=== PATIENT | female | born 1960 | race Hispanic/Latino ===

== ENCOUNTER 2017-10-07 11:45 | Outpatient (CLI) | payer BC | END 2017-10-07 11:46 | disposition home or self-care (01) | LOC: BICMAMMO 11:45 | PROVIDERS: ATTEND Family Medicine | DX: Z12.31 Encounter for screening mammogram for malignant neoplasm of breast (principal) | CPT/HCPCS: 77063; 77067 ==

== ENCOUNTER 2019-01-02 11:48 | Outpatient (CLI) | payer BC ==
--- NOTE | 2019-01-02 12:29 | MMO ---
Bilateral MAMMO Bilat Screen [facility]. CLINICAL HISTORY: Patient is 58 years old and is seen for screening. The patient has no family history of breast cancer. The patient has no personal history of cancer. VIEWS: The views performed were: bilateral craniocaudal with tomosynthesis and bilateral mediolateral oblique with tomosynthesis. FILMS COMPARED: The present examination has been compared to prior imaging studies performed at [facility] on 04/01/2013, 05/02/2015, 08/02/2016 and 10/07/2017. MAMMOGRAM FINDINGS: There are scattered fibroglandular densities. There are no suspicious masses, suspicious calcifications, or new areas of architectural distortion. IMPRESSION: THERE IS NO MAMMOGRAPHIC EVIDENCE OF MALIGNANCY. A ROUTINE FOLLOW-UP MAMMOGRAM IN 1 YEAR IS RECOMMENDED. THE RESULTS OF THIS EXAM WERE SENT TO THE PATIENT. ACR BI-RADS Category 1 - Negative MAMMOGRAPHY NOTE: 1. A negative mammogram report should not delay a biopsy if a dominant of clinically suspicious mass is present. 2. Approximately 10% to 15% of breast cancers are not detected by mammography. 3. Adenosis and dense breasts may obscure an underlying neoplasm. Reported by: PINKY BRICEÑO MD Electonically Signed: [id number]
== END 2019-01-02 11:49 | disposition home or self-care (01) ==
LOC: BICMAMMO 11:48
PROVIDERS: ATTEND Family Medicine
DX: Z12.31 Encounter for screening mammogram for malignant neoplasm of breast (principal)
CPT/HCPCS: 77063; 77067

== ENCOUNTER 2019-07-06 13:52 | Outpatient (CLI) | payer BC ==
--- NOTE | 2019-07-06 15:31 | BD ---
BONE DENSITOMETRY: Date: 07/06/2019 HISTORY: Postmenopausal osteoporosis screening. FINDINGS: Lumbar Spine: BMD (g/cm2) L1 0.784 T-Score: -1.9 L2 0.773 T-Score: -2.3 L3 0.826 T-Score: -2.3 L4 0.929 T-Score: -1.2 Total 0.832 T-Score: -2.0 Left Femoral Neck: 0.730 T-Score: -1.1 Total Femur: 0.900 T-Score: -0.3 IMPRESSION: Bone mineral density of the lumbar spine and femoral neck both indicate osteopenia. 10 YEAR FRACTURE RISK: Major osteoporotic fracture: 8.6% Hip fracture: 0.5% POS: [facility]
== END 2019-07-06 13:53 | disposition home or self-care (01) ==
LOC: BICMAMMO 13:52
PROVIDERS: ATTEND Internal Medicine Rheumatology
DX: M81.0 Age-related osteoporosis without current pathological fracture (principal); M85.89 Other specified disorders of bone density and structure, multiple sites
CPT/HCPCS: 77080

== ENCOUNTER 2020-03-31 10:55 | Outpatient (CLI) | payer BC ==
--- NOTE | 2020-03-31 11:30 | MMO ---
Bilateral MAMMO Bilat Screen [facility]. CLINICAL HISTORY: Patient is 59 years old and is seen for screening. The patient has no family history of breast cancer. The patient has no personal history of cancer. VIEWS: The views performed were: bilateral craniocaudal with tomosynthesis and bilateral mediolateral oblique with tomosynthesis. FILMS COMPARED: The present examination has been compared to prior imaging studies performed at [facility] on 05/02/2015, 08/02/2016, 10/07/2017 and 01/02/2019. This study has been interpreted with the assistance of computer-aided detection. MAMMOGRAM FINDINGS: There are scattered fibroglandular densities. There are no suspicious masses, suspicious calcifications, or new areas of architectural distortion. IMPRESSION: THERE IS NO MAMMOGRAPHIC EVIDENCE OF MALIGNANCY. A ROUTINE FOLLOW-UP MAMMOGRAM IN 1 YEAR IS RECOMMENDED. THE RESULTS OF THIS EXAM WERE SENT TO THE PATIENT. ACR BI-RADS Category 1 - Negative MAMMOGRAPHY NOTE: 1. A negative mammogram report should not delay a biopsy if a dominant of clinically suspicious mass is present. 2. Approximately 10% to 15% of breast cancers are not detected by mammography. 3. Adenosis and dense breasts may obscure an underlying neoplasm. Reported by: JOSHUA ROSEN MD Electonically Signed: [id number]
== END 2020-03-31 10:56 | disposition home or self-care (01) ==
LOC: BICMAMMO 10:55
PROVIDERS: ATTEND Family Medicine
DX: Z12.31 Encounter for screening mammogram for malignant neoplasm of breast (principal)
CPT/HCPCS: 77063; 77067

== ENCOUNTER 2021-06-29 13:29 | Outpatient (CLI) | payer BC | END 2021-06-29 13:30 | disposition home or self-care (01) | LOC: BICMAMMO 13:29 | PROVIDERS: ATTEND Family Medicine | DX: Z12.31 Encounter for screening mammogram for malignant neoplasm of breast (principal); M81.0 Age-related osteoporosis without current pathological fracture; M85.851 Other specified disorders of bone density and structure, right thigh; M85.852 Other specified disorders of bone density and structure, left thigh; N64.89 Other specified disorders of breast | CPT/HCPCS: 77063; 77067; 77080 ==

== ENCOUNTER 2021-07-04 12:25 | Outpatient (CLI) | payer BC | END 2021-07-04 12:26 | disposition home or self-care (01) | LOC: BICMAMMO 12:25 | PROVIDERS: ATTEND Family Medicine | DX: R92.2 Inconclusive mammogram (principal) | CPT/HCPCS: G0279 ==

== ENCOUNTER 2022-09-18 10:47 | Outpatient (CLI) | payer BC | END 2022-09-18 10:48 | disposition home or self-care (01) | LOC: BICMAMMO 10:47 | PROVIDERS: ATTEND Internal Medicine Rheumatology | DX: M81.0 Age-related osteoporosis without current pathological fracture (principal); M85.80 Other specified disorders of bone density and structure, unspecified site | CPT/HCPCS: 77080 ==

== ENCOUNTER 2023-11-15 11:26 | Outpatient (CLI) | payer BC | END 2023-11-15 11:27 | disposition home or self-care (01) | LOC: BICMAMMO 11:26 | PROVIDERS: ATTEND Family Medicine | DX: Z12.31 Encounter for screening mammogram for malignant neoplasm of breast (principal) | CPT/HCPCS: 77063; 77067 ==

== ENCOUNTER 2023-12-20 14:34 | Inpatient (IN) | payer BC ==
[2023-12-20] MEDS ORDERED: Dexamethasone 10 MG/ML VIAL ONE (15:53)
[2023-12-20] MEDS ORDERED: Meclizine HCl 25 MG TAB ONE (15:54)
[2023-12-20] MEDS ORDERED: LORazepam 2 MG/ML SYR.(CARPUJECT) ONE (15:54)
[2023-12-20 16:41] LABS: #Basophils 0.03 10x3/uL (0.0-0.2); #Eosinphils Less than 0.03 10x3/uL (0.0-0.7); %Basophils 0.4 % (0.0-1.0); %Lymphocytes 7.3 % (21.0-51.0); %Monocytes 3.2 % (0.0-10.0); Hematocrit 36.9 % (36.0-47.0); Hemoglobin 12.8 g/dL (12.0-16.0); Mean Corpuscular HGB CONC 34.7 g/dL (32.0-36.0); Mean Corpuscular Volume 92.3 fL (78.0-98.0); Mean Platelet Volume 10.1 fL (7.4-10.4); Platelet Count 273 10x3/uL (130-400); RBC Distribution Width 12.6 % (11.5-14.5)
[2023-12-20 16:52] LABS: ALT (SGPT) 16 U/L (8-55); AST (SGOT) 19 U/L (5-34); Albumin 3.6 g/dL (3.4-4.8); Alkaline Phosphatase 50 U/L (40-110); Anion Gap 10 mmol/L (10-20); BUN (Urea Nitrogen) 11 mg/dL (9.8-20.1); Bilirubin, Total 0.1 mg/dL (0.2-1.2); Calc. Creatinine Clearance 0 mL/min (70-130); Calcium 8.6 mg/dL (7.8-10.44); Carbon Dioxide 23 mmol/L (23-31); Chloride 112 mmol/L (98-107); Estimated GFR 102; Globulin 2.3 g/dL (2.4-3.5); Glucose 134 mg/dL (80-115); Potassium 3.5 mmol/L (3.5-5.1); Protein, Total 5.9 g/dL (5.8-8.1); Sodium 141 mmol/L (136-145)
[2023-12-20 16:58] LABS: Troponin I 0.038 ng/mL (< 0.028)
[2023-12-20 19:24] LABS: Troponin I 0.123 ng/mL (< 0.028)
[2023-12-20] MEDS ORDERED: Ondansetron PF 4 MG/2 ML Vial ONE (20:28)
[2023-12-20] MEDS ORDERED: Ondansetron ODT 4 MG TAB SL PRN (21:15)
[2023-12-20] MEDS ORDERED: Ondansetron PF 4 MG/2 ML Vial IVP PRN (21:15)
[2023-12-20] MEDS: Sodium Chloride 0.9% 1,000 ML IV SCH (21:51)
[2023-12-20 22:14] VITALS: BMI 23.6
[2023-12-20 23:18] LABS: Troponin I 0.137 ng/mL (< 0.028)
[2023-12-21] MEDS ORDERED: hydrALAZINE 20 MG/ML VIAL SLOW IVP PRN (00:33)
[2023-12-21] MEDS ORDERED: Acetaminophen 650 MG Suppository PR PRN (00:33)
[2023-12-21] MEDS ORDERED: Atropine Sulfate 1 mg/1 ml Vial IVP PRN (01:37)
[2023-12-21] MEDS: Aspirin Chewable 81 MG TAB PO SCH (02:11)
[2023-12-21 02:36] LABS: #Basophils Less than 0.03 10x3/uL (0.0-0.2); #Eosinphils Less than 0.03 10x3/uL (0.0-0.7); %Basophils 0.2 % (0.0-1.0); %Lymphocytes 17.6 % (21.0-51.0); %Monocytes 3.9 % (0.0-10.0); %Neutrophils 77.9 % (42.0-75.0); Hematocrit 34.7 % (36.0-47.0); Hemoglobin 11.8 g/dL (12.0-16.0); Mean Corpuscular Hemoglobin 32.2 pg (27.0-31.0); Mean Corpuscular Volume 94.6 fL (78.0-98.0); Mean Platelet Volume 9.7 fL (7.4-10.4); Platelet Count 249 10x3/uL (130-400); RBC Distribution Width 12.6 % (11.5-14.5); Red Blood Cell (RBC) Count 3.67 mill/uL (4.20-5.40)
[2023-12-21 02:56] LABS: Troponin I 0.118 ng/mL (< 0.028)
[2023-12-21 03:35] LABS: Anion Gap 10 mmol/L (10-20); BUN (Urea Nitrogen) 9 mg/dL (9.8-20.1); Calc. Creatinine Clearance 100 mL/min (70-130); Calcium 8.3 mg/dL (7.8-10.44); Carbon Dioxide 20 mmol/L (23-31); Cardiac Risk 2.4 (Less than 4.5); Chloride 117 mmol/L (98-107); Cholesterol 179 mg/dl (< 200 Desired); Estimated GFR 104; Glucose 131 mg/dL (80-115); HDL Cholesterol 76 mg/dL (>60 Neg Risk); LDL Cholesterol, Calculated 96 mg/dL; Potassium 3.6 mmol/L (3.5-5.1); Sodium 143 mmol/L (136-145); Triglycerides 36 mg/dL (Less than 150)
[2023-12-21] MEDS: Acetaminophen 325 MG TAB PO PRN (03:55)
[2023-12-21] MEDS: Aspirin 81 mg Enteric Coated Tablet PO SCH (10:02)
[2023-12-22 04:31] LABS: #Basophils 0.04 10x3/uL (0.0-0.2); %Basophils 0.7 % (0.0-1.0); %Eosinophils 2.6 % (0.0-10.0); %Lymphocytes 34.6 % (21.0-51.0); %Monocytes 9.2 % (0.0-10.0); %Neutrophils 52.7 % (42.0-75.0); Hematocrit 39.7 % (36.0-47.0); Mean Corpuscular HGB CONC 32.7 g/dL (32.0-36.0); Mean Corpuscular Hemoglobin 31.9 pg (27.0-31.0); Mean Corpuscular Volume 97.3 fL (78.0-98.0); Mean Platelet Volume 10.1 fL (7.4-10.4); Platelet Count 275 10x3/uL (130-400); RBC Distribution Width 12.7 % (11.5-14.5); Red Blood Cell (RBC) Count 4.08 mill/uL (4.20-5.40)
[2023-12-22 04:55] LABS: Hemoglobin A1c 5.6 % (4.0-6.0)
[2023-12-22 05:24] LABS: ALT (SGPT) 17 U/L (8-55); AST (SGOT) 20 U/L (5-34); Albumin 3.6 g/dL (3.4-4.8); Alkaline Phosphatase 43 U/L (40-110); Anion Gap 11 mmol/L (10-20); BUN (Urea Nitrogen) 10 mg/dL (9.8-20.1); Bilirubin, Total 0.3 mg/dL (0.2-1.2); Calc. Creatinine Clearance 90 mL/min (70-130); Calcium 9.3 mg/dL (7.8-10.44); Carbon Dioxide 22 mmol/L (23-31); Chloride 110 mmol/L (98-107); Estimated GFR 101; Globulin 2.4 g/dL (2.4-3.5); Glucose 113 mg/dL (80-115); Potassium 3.7 mmol/L (3.5-5.1); Sodium 139 mmol/L (136-145)
[2023-12-22] MEDS: Atorvastatin Calcium 20 MG TAB PO SCH (09:38)
[2023-12-22] MEDS: Lisinopril 20 MG TAB PO SCH (14:01)
[2023-12-23 05:06] LABS: ALT (SGPT) 15 U/L (8-55); AST (SGOT) 17 U/L (5-34); Albumin 3.5 g/dL (3.4-4.8); Alkaline Phosphatase 43 U/L (40-110); Anion Gap 12 mmol/L (10-20); BUN (Urea Nitrogen) 11 mg/dL (9.8-20.1); Bilirubin, Total 0.2 mg/dL (0.2-1.2); Calc. Creatinine Clearance 104 mL/min (70-130); Calcium 9.1 mg/dL (7.8-10.44); Carbon Dioxide 20 mmol/L (23-31); Chloride 110 mmol/L (98-107); Estimated GFR 105; Globulin 2.5 g/dL (2.4-3.5); Glucose 126 mg/dL (80-115); Potassium 3.5 mmol/L (3.5-5.1); Sodium 138 mmol/L (136-145)
[2023-12-23 05:07] LABS: #Basophils 0.04 10x3/uL (0.0-0.2); %Basophils 0.6 % (0.0-1.0); %Eosinophils 2.7 % (0.0-10.0); %Lymphocytes 27.3 % (21.0-51.0); %Monocytes 8.4 % (0.0-10.0); %Neutrophils 60.7 % (42.0-75.0); Hematocrit 39.7 % (36.0-47.0); Hemoglobin 13.7 g/dL (12.0-16.0); Mean Corpuscular HGB CONC 34.5 g/dL (32.0-36.0); Mean Corpuscular Hemoglobin 31.8 pg (27.0-31.0); Mean Corpuscular Volume 92.1 fL (78.0-98.0); Mean Platelet Volume 10.3 fL (7.4-10.4); Platelet Count 287 10x3/uL (130-400); RBC Distribution Width 12.2 % (11.5-14.5); Red Blood Cell (RBC) Count 4.31 mill/uL (4.20-5.40)
[2023-12-23 08:18] VITALS: TEMP 97.5
[2023-12-23] MEDS ORDERED: Regadenoson 0.4 MG/5 ML SYRINGE ONE (13:00)
[2023-12-23] MEDS: Lisinopril 20 MG TAB PO SCH (14:15)
[2023-12-23 15:44] VITALS: BP 129/71
[2023-12-23] MEDS: traMADol HCl 50 MG TAB PO PRN (15:46)
== END 2023-12-23 16:37 | disposition home or self-care (01) | DRG 69 ==
LOC: ERS 14:34 → 2SW 20:36 → OBSVTOIN 12-23 13:37
PROVIDERS: ADMIT Student in an Organized Health Care Education/Training Program; ATTEND Internal Medicine
DX: G45.9 Transient cerebral ischemic attack, unspecified (principal); I65.21 Occlusion and stenosis of right carotid artery; I10 Essential (primary) hypertension; M19.90 Unspecified osteoarthritis, unspecified site; E78.5 Hyperlipidemia, unspecified; Z88.1 Allergy status to other antibiotic agents; Z88.0 Allergy status to penicillin; Z79.899 Other long term (current) drug therapy
CPT/HCPCS: 36415; 70450; 70551; 71045; 78452; 80048; 80053; 80061; 83036; 83735; 84443; 84484; 85025; 93005; 93010; 93017; 93306; 93880; A9502; G0378; J1100; J2060; J2405; J2785; J7050